=== PATIENT | female | born 1950 | race Caucasian/White ===

== ENCOUNTER 2018-05-20 06:53 | Day surgery (SDC) | payer MEDICARE, OTHER ==
[2018-05-20] VITALS (7 sets, daily range): BP systolic 112–181; BP diastolic 38–64; PULSE 58–67; TEMP 97.2
[~2018-05-20] VITALS: Ht 170.2 cm; Wt 86.5 kg
[~2018-05-20 06:53] MED LIST: AMBIEN 5MG TABLE5 MG PO; ASPIRIN E.C. 8181 MG PO; BRILINTA90 MG PO; CLEOCIN HCL300 MG PO; CULTURELLE10 Billion PO; FISH OIL500 MG PO; GLUCOPHAGE500 MG/TAB PO; IBGARD PO; LIPITOR 40MG TA40 MG PO; LIPITOR20 MG PO; NATURAL SENNA8.6 MG PO; NITROSTAT0.4 MG/TAB SL; PRILOSEC10 MG PO; PRINIVIL10 MG PO; SYNTHROID0.05 MG/TA PO; TURMERIC1 POW PO
[2018-05-20] MEDS ORDERED: PRINIVIL5 MG PO (07:49)
[2018-05-20] MEDS ORDERED: PLAVIX 75MG TAB75 MG PO (07:50)
[2018-05-20] MEDS ORDERED: PRILOSEC 20MG20 MG PO (07:53)
[2018-05-20] MEDS ORDERED: FIBERCON PO (07:57)
[2018-05-20] MEDS ORDERED: NORCO 325 MG-51 TAB PO (10:48)
[2018-05-20] MEDS ORDERED: MOTRIN 600600 MG/TAB PO (10:48)
[2018-05-20] MEDS ORDERED: COLACE 100100 MG/CAP PO (10:48)
== END 2018-05-20 15:05 | disposition home or self-care (01) ==
LOC: SDCO 06:53
DX: K81.1 Chronic cholecystitis (principal); K76.0 Fatty (change of) liver, not elsewhere classified; E11.65 Type 2 diabetes mellitus with hyperglycemia; E03.9 Hypothyroidism, unspecified; E78.00 Pure hypercholesterolemia, unspecified; F41.8 Other specified anxiety disorders; I10 Essential (primary) hypertension; I25.10 Atherosclerotic heart disease of native coronary artery without angina pectoris; R55 Syncope and collapse; M19.90 Unspecified osteoarthritis, unspecified site; K21.9 Gastro-esophageal reflux disease without esophagitis; Z88.0 Allergy status to penicillin; Z79.84 Long term (current) use of oral hypoglycemic drugs; Z79.02 Long term (current) use of antithrombotics/antiplatelets; Z79.82 Long term (current) use of aspirin; Z90.710 Acquired absence of both cervix and uterus; Z83.3 Family history of diabetes mellitus; Z82.49 Family history of ischemic heart disease and other diseases of the circulatory system
CPT/HCPCS: J1100; J1885; J2405; J2704; J3010; J7030; Q9967

== ENCOUNTER 2021-08-07 06:50 | Day surgery (SDC) | payer MEDICARE, OTHER ==
[2021-08-07] VITALS (20 sets, daily range): BP systolic 110–158; BP diastolic 42–72; PULSE 61–80; TEMP 97.4–98.1
[~2021-08-07] VITALS: Ht 170.3 cm; Wt 78.2 kg
[~2021-08-07 06:50] MED LIST changes: +AMBIEN 10MG10 MG PO; -AMBIEN 5MG TABLE5 MG PO; +COLACE 100100 MG/CAP PO; +FIBERCON PO; -LIPITOR 40MG TA40 MG PO; +LIPITOR 80MG80 MG PO; +MOTRIN 600600 MG/TAB PO; +NORCO 325 MG-51 TAB PO; +PLAVIX 75MG TAB75 MG PO; +PRILOSEC 20MG20 MG PO; +PRINIVIL5 MG PO
[2021-08-07 07:50] LABS: HEMATOCRIT 35.6 % (37.0-47.0); MEAN CELL VOLUME 79 fl (80.0-100.0); MEAN CORPUSCULAR HEMOGLOBIN 24 pg (27-31); MEAN CORPUSCULAR HGB CONC 31 g/dl (33.0-37.0); MEAN PLATELET VOLUME 8.5 fl (7.4-10.4); PLATELET COUNT 392 K/mm3 (130-400); RED BLOOD COUNT 4.52 M/mm3 (4.10-5.30); REDCELL DISTRIBUTION WIDTH-CV 15.9 % (11.5-14.5)
[2021-08-07 08:03] LABS: PROTHROMBIN TIME 11.2 SECONDS (9.7-12.8)
[2021-08-07 08:05] LABS: PARTIAL THROMBOPLASTIN TIME 28.6 SECONDS (26.0-37.0)
[2021-08-07 08:09] LABS: CALCIUM 9.3 mg/dL (8.4-10.2); CREATININE, serum 0.88 mg/dL (0.57-1.11); POTASSIUM 4.2 mmol/L (3.5-4.5)
--- NOTE | 2021-08-07 08:20 | NUR ---
SEE MERGE FOR ALL MEDICATION ADMINISTRATION TIMES/DOSAGES AND INTRA/POST PROCEDURE SEDATION ASSESSMENTS. PRE PROCEDURE ASSESSMENT COMPLETED IN [facility].
[2021-08-07] MEDS ORDERED: UREX1 GM PO (08:24)
[2021-08-07] MEDS ORDERED: MICARDIS40 MG PO (08:25)
[2021-08-07] MEDS ORDERED: PLAVIX 75MG TAB75 MG PO (08:26)
[2021-08-07] MEDS ORDERED: PROCARDIA XL 6060 MG PO (08:26)
[2021-08-07] MEDS ORDERED: MOBIC 7.5MG7.5 MG PO (08:27)
[2021-08-07] MEDS ORDERED: HCTZ12.5TAB PO (08:28)
[2021-08-07] MEDS ORDERED: GLUCOPHAGE XR750 MG PO (08:28)
[2021-08-07] MEDS ORDERED: COLACE 100100 MG/CAP PO (08:31)
--- NOTE | 2021-08-07 13:02 | NUR ---
Report from Ji in [facility]
--- NOTE | 2021-08-07 13:05 | NUR ---
Phone report to SHAYY Mcdaniels on Surgical floor at this time. Pt resting comfortably in bed and has been free of complaints following procedure. 6ml of air has been removed from TR band, 6 ml remaining. Enedelia will complete removal of air once pt is setteled in rm 325. No bleeding or complications from radial puncture site to this point. Pt will be taken to floor by SHAYY Davenport with belongings. NS continues to infuse at 100 ml/hr.
--- NOTE | 2021-08-07 19:51 | NUR ---
Patient has done well post medical lab director. Only troubles she had was upon arrival to room 325, she got light headed & dizzy. We got her layed down in bed & vitals taken, once lying down she did start to feel better. Vitals have been stable. I did speak to Linda in cardiology this afternoon, tylenol Prn ordered for headache. We also reviewed orders for Imdur. Imdur given per orders. Patient Right radial site TR band air was relases slowly 2 mls at a times this afternoon. No Bleeding was noted. She does have a slight hematoma at the site. Patient has been up to the bathroom & voided x2. Tolerated her dinner meal. She is hoping to get good rest tonight. Bedside report to Varun LUCAS
--- NOTE | 2021-08-07 20:20 | NUR ---
Pt. sitting up in bed. Pt. is A&OX3, assessment complete. IV to lt. ac patent. IV fluids infusing per orders. Pt. denies further needs, call light within reach.
[2021-08-08 00:30] VITALS: BP 128/58; PULSE 70; TEMP 98.1
[2021-08-08 03:19] VITALS: BP 115/40; PULSE 69; TEMP 97.8
[2021-08-08 04:00] VITALS: BP 115/40; PULSE 69; TEMP 97.8
[2021-08-08 07:04] LABS: BASO # 0.1 K/mm3 (0.0-0.2); EOS # 0.3 K/mm3 (0.0-0.7); EOS % 4.3 % (0.0-4.0); GRAN # 4.3 K/mm3 (1.4-6.5); GRAN % 60.3 % (42.2-75.2); LYMPH # 1.6 K/mm3 (1.2-3.4); LYMPH % 23.2 % (20.0-51.0); MEAN CELL VOLUME 80 fl (80.0-100.0); MEAN CORPUSCULAR HGB CONC 31 g/dl (33.0-37.0); MEAN PLATELET VOLUME 8.7 fl (7.4-10.4); MONO # 0.8 K/mm3 (0.1-0.6); MONO % 10.9 % (1.7-9.3); PLATELET COUNT 384 K/mm3 (130-400); RED BLOOD COUNT 3.97 M/mm3 (4.10-5.30); REDCELL DISTRIBUTION WIDTH-CV 16.2 % (11.5-14.5)
[2021-08-08 07:05] LABS: HEMATOCRIT 31.6 % (37.0-47.0); HEMOGLOBIN 9.8 g/dl (12.5-16.0); MEAN CORPUSCULAR HEMOGLOBIN 25 pg (27-31)
[2021-08-08 07:14] LABS: CALCIUM 9.2 mg/dL (8.4-10.2); CREATININE, serum 0.77 mg/dL (0.57-1.11)
--- NOTE | 2021-08-08 07:42 | NUR ---
Report received from SHAYY Hdez. Patient is resting comfortably in bed. Call light and bedside table ae within reach. Will continue to monitor patient throughout shift.
[2021-08-08 07:53] VITALS: BP 139/53; PULSE 72; TEMP 97.9
[2021-08-08 08:00] VITALS: BP 115/40; PULSE 69; TEMP 97.8
--- NOTE | 2021-08-08 09:06 | NUR ---
location worker met with patient to discuss discharge plan. Patient reports that she lives at home with her good friend/mall plant caretaker Lonnie ([phone]). Patient reports that she is fully independent with her activities of daily living and does not utilize any DME to assist with mobility. Patient has no oxygen needs at home. PCP is Dr. Nain Dunaway out of [place] and she utilizes [facility] in [place] with no cost difficulty. Patient reports that she does have a DPOA-HC established and that her agent listed is her daughter Rosenda Yousif ([place]) [phone]). Patient is planning on returning home with no concerns and that Lonnie will be picking her up. Discharge plan: Home
--- NOTE | 2021-08-08 09:32 | NUR ---
Initial visit; Patient thanked Knot Tier for offering God's blessings.
[2021-08-08 11:02] VITALS: BP 139/46; PULSE 78; TEMP 97.4
[2021-08-08] MEDS ORDERED: IMDUR 30MG30 MG/TAB PO (11:23)
[2021-08-08] MEDS ORDERED: BRILINTA90 MG PO (11:23)
--- NOTE | 2021-08-08 13:04 | NUR ---
Patient has been discharged. All personal belongings have been cleared from room, to include cell phone and foundation director. Discharge paperwork has been signed. Patient was transported via wheelchair and seatbleted for ride home.
== END 2021-08-08 12:50 | disposition home or self-care (01) ==
LOC: COL.CAR 06:50 → SURG 13:01 → COL.CAR 08-08 12:50
PROVIDERS: Internal Medicine Cardiovascular Disease
DX: I25.10 Atherosclerotic heart disease of native coronary artery without angina pectoris (principal); I65.29 Occlusion and stenosis of unspecified carotid artery; I10 Essential (primary) hypertension; R55 Syncope and collapse; R94.39 Abnormal result of other cardiovascular function study; E11.9 Type 2 diabetes mellitus without complications; E78.5 Hyperlipidemia, unspecified; Z79.82 Long term (current) use of aspirin; Z79.899 Other long term (current) drug therapy; Z79.84 Long term (current) use of oral hypoglycemic drugs; Z95.1 Presence of aortocoronary bypass graft; Z79.890 Hormone replacement therapy; Z83.3 Family history of diabetes mellitus; Z80.1 Family history of malignant neoplasm of trachea, bronchus and lung
CPT/HCPCS: OP; C1769; C1874; C1887; C9600; J0583; J1644; J2250; J3010; Q9967

== ENCOUNTER 2023-07-31 23:09 | Inpatient (IN) | payer MEDICARE ==
[~2023-07-31] VITALS: Ht 170.2 cm; Wt 76.0 kg
--- NOTE | 2023-07-31 22:07 | NUR ---
Received phone report from [facility], emergency dept RN, Namrata. Waiting for patient to arrive to unit via transport, unclear if patient will transport by air or ground.
--- NOTE | 2023-07-31 23:02 | NUR ---
Namrata, ED RN from [place], [place], called to confirm patient will be transported via ground vehicle, estimated time of belt picker around midnight from their facility. Waiting patient arrival to unit for admit to room 343.
[~2023-07-31 23:09] MED LIST changes: +GLUCOPHAGE XR750 MG PO; +HCTZ12.5TAB PO; +IMDUR 30MG30 MG/TAB PO; +MICARDIS40 MG PO; +MOBIC 7.5MG7.5 MG PO; -PRILOSEC 20MG20 MG PO; +PROCARDIA XL 6060 MG PO; +UREX1 GM PO
--- NOTE | 2023-08-01 01:50 | NUR ---
Patient arrived via EMS cart with EMS staff x2 transporting patient for admit to room 343. call center representative hosp provider contacted to inform of patient's arrival.
[2023-08-01 02:00] VITALS: BP 127/80; PULSE 72; TEMP 97.5
[2023-08-01] MEDS ORDERED: PROAIR HFA0.09 MG/AC IH (03:01)
[2023-08-01] MEDS ORDERED: KLONOPIN WAFE0.25 MG PO (03:04)
[2023-08-01] MEDS ORDERED: CENTRUM SILVER1 TAB PO (03:12)
[2023-08-01] MEDS ORDERED: EFFIENT10 MG PO (03:19)
[2023-08-01] MEDS ORDERED: TYLENOL 325MG325 MG PO (03:24)
[2023-08-01 03:58] LABS: BASO # 0.1 K/mm3 (0.0-0.2); EOS # 0.2 K/mm3 (0.0-0.7); EOS % 1.9 % (0.0-4.0); GRAN # 5.9 K/mm3 (1.4-6.5); GRAN % 57.4 % (42.2-75.2); HEMOGLOBIN 12.2 g/dl (12.5-16.0); LYMPH # 3.2 K/mm3 (1.2-3.4); LYMPH % 31.1 % (20.0-51.0); MEAN CELL VOLUME 92 fl (80.0-100.0); MEAN CORPUSCULAR HEMOGLOBIN 31 pg (27-31); MEAN CORPUSCULAR HGB CONC 33 g/dl (33.0-37.0); MEAN PLATELET VOLUME 8.7 fl (7.4-10.4); MONO # 0.9 K/mm3 (0.1-0.6); MONO % 8.3 % (1.7-9.3); PLATELET COUNT 323 K/mm3 (130-400); RED BLOOD COUNT 3.98 M/mm3 (4.10-5.30); REDCELL DISTRIBUTION WIDTH-CV 13.2 % (11.5-14.5)
[2023-08-01 03:59] LABS: HEMATOCRIT 36.5 % (37.0-47.0)
[2023-08-01 04:00] VITALS: BP 109/66; PULSE 70; TEMP 98.1
[2023-08-01 04:11] LABS: PARTIAL THROMBOPLASTIN TIME 51.3 SECONDS (26.0-37.0)
[2023-08-01 04:35] LABS: ALBUMIN 3.8 gm/dL (3.4-4.8); BILIRUBIN,TOTAL 0.4 mg/dL (0.2-1.2); CALCIUM 9.5 mg/dL (8.4-10.2); CREATININE, serum 0.81 mg/dL (0.57-1.11); POTASSIUM 4.2 mmol/L (3.5-4.5); TOTAL PROTEIN 6.8 gm/dL (6.2-8.1)
[2023-08-01 05:27] LABS: MAGNESIUM 1.6 mg/dL (1.6-2.6); PHOSPHOROUS 3.7 mg/dL (2.3-4.7)
[2023-08-01 05:41] LABS: TROPONIN-I 2.05 ng/mL (0.00-0.033)
--- NOTE | 2023-08-01 05:45 | NUR ---
Lab called critical TROP level of 2.050.
--- NOTE | 2023-08-01 07:12 | NUR ---
Change of shift report given to day shift nurseJane.
[2023-08-01 07:55] VITALS: BP 120/76; PULSE 62; TEMP 97.6
--- NOTE | 2023-08-01 08:56 | NUR ---
pt a&ox3 resting in bed. meds given and assessment complete. pt denies pain. heparin gtt running at 9ml/hr into right ac. left ac int patent. vss and tele in place. pt denies needs at this time. call light in reach.
--- NOTE | 2023-08-01 09:45 | NUR ---
Initial visit; Patient thanked [facility] for informing her of the availability of [facility] at [facility] and offering God's blessings. Patient's also present.
--- NOTE | 2023-08-01 11:20 | NUR ---
hepxa lab result 0.42, per protocol rate decreased by 100 units and now running at 8ml/hr. next hepxa to be drawn at 1715.
[2023-08-01 12:09] VITALS: BP 130/79; PULSE 66; TEMP 97.7
--- NOTE | 2023-08-01 12:50 | NUR ---
pt off floor for procedure
[2023-08-01 13:01] VITALS: BP_SYST 130
[2023-08-01 13:06] VITALS: BP 134/66; PULSE 66
--- NOTE | 2023-08-01 13:07 | NUR ---
SEE MERGE DOCUMENTATION FOR MEDICATION ADMINISTRATION AND INTRA/POST PROCEDURE SEDATION ASSESSMENTS.
--- NOTE | 2023-08-01 13:58 | NUR ---
report called to nurse alexander in ICU
== END 2023-08-01 15:00 | disposition short-term general hospital (02) | DRG 282 ==
LOC: MEDICAL 23:09 → SURG 08-01 01:55 → ICU 08-01 13:46
PROVIDERS: Nurse Practitioner Family; ADMIT Internal Medicine
PROC: 4A023N7 Measurement of Cardiac Sampling and Pressure, Left Heart, Percutaneous Approach (ICD-10-PCS; principal; 2023-08-01)
PROC: B2111ZZ Fluoroscopy of Multiple Coronary Arteries using Low Osmolar Contrast (ICD-10-PCS; 2023-08-01)
DX: I21.4 Non-ST elevation (NSTEMI) myocardial infarction (principal); E83.42 Hypomagnesemia; I10 Essential (primary) hypertension; E03.9 Hypothyroidism, unspecified; E78.5 Hyperlipidemia, unspecified; K21.9 Gastro-esophageal reflux disease without esophagitis
CPT/HCPCS: C1769; J1265; J1644; J2250; J2310; J2404; J2405; J3010; J3475